=== PATIENT | male | born 1975 ===

== ENCOUNTER 2018-08-30 14:12 | Emergency (ER) | payer SELFPAY ==
[2018-08-30 14:22] VITALS: BP 116/75
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
[2018-08-30] MEDS ORDERED: Mupirocin 2% OINT* TUBE TOPICAL ONE (14:35)
== END 2018-08-30 15:06 | disposition home or self-care (01) ==
LOC: UCEAST 14:12
DX: T25.211A Burn of second degree of right ankle, initial encounter (principal); T31.0 Burns involving less than 10% of body surface; X08.8XXA Exposure to other specified smoke, fire and flames, initial encounter; W39.XXXA Discharge of firework, initial encounter; Y92.89 Other specified places as the place of occurrence of the external cause; F41.9 Anxiety disorder, unspecified; F32.9 Major depressive disorder, single episode, unspecified
CPT/HCPCS: 99213; G0463